=== PATIENT | male | born 1985 | race Caucasian/White ===

== ENCOUNTER → 2020-03-27 | Outpatient (CLI) | payer BC, OTHER ==
--- NOTE | 2020-03-28 06:17 | REP ---
REASON FOR EXAM: Elbow contusion. There is a nondisplaced radial head fracture and an elbow joint effusion. Electronically Signed by Chivo Allan DO 03/28/2020 04:52 P
== END ==
LOC: M WUC 15:51
PROVIDERS: ATTEND Physician Assistant
DX: S52.125A Nondisplaced fracture of head of left radius, initial encounter for closed fracture (principal); X58.XXXA Exposure to other specified factors, initial encounter; Y92.89 Other specified places as the place of occurrence of the external cause